=== PATIENT | male | born 1965 | race Caucasian/White ===

== ENCOUNTER 2016-09-20 14:15 | Emergency (ER) | payer BC, OTHER ==
[2016-09-20] MEDS ORDERED: LIDOCAINE 1% 50 ML MDV SUBQ STA (14:30)
[2016-09-20] MEDS ORDERED: LIDOCAINE-MPF 1% 5 ML VIAL ONE (14:33)
== END 2016-09-20 15:25 | disposition home or self-care (01) ==
DX: S61.311A Laceration without foreign body of left index finger with damage to nail, initial encounter (principal); W31.2XXA Contact with powered woodworking and forming machines, initial encounter; Y93.89 Activity, other specified; E78.5 Hyperlipidemia, unspecified; Z79.82 Long term (current) use of aspirin

== ENCOUNTER 2016-12-03 08:00 | Outpatient (CLI) | payer OTHER ==
[2016-12-03 19:28] LABS: ALBUMIN/GLOBULIN RATIO 1.3 (1.0-2.2); BILIRUBIN,TOTAL 0.5 mg/dL (0.2-1.0); CALCIUM 9.3 mg/dL (8.5-10.3); POTASSIUM 3.9 mmol/L (3.5-5.0); TOTAL PROTEIN 7.2 g/dL (6.7-8.2)
[2016-12-03 20:30] LABS: BASOPHILS % (AUTO) 0.5 %; EOSINOPHILS # (AUTO) 0.2 10^3/uL (0.0-0.7); EOSINOPHILS % (AUTO) 2.6 %; HCT - HEMATOCRIT 40.8 % (42.0-52.0); HGB - HEMOGLOBIN 13.4 g/dL (14.0-18.0); LYMPHOCYTES # (AUTO) 2.6 10^3/uL (1.5-3.5); LYMPHOCYTES % (AUTO) 37.1 %; MEAN CORPUSCULAR HEMOGLOBIN 29.6 pg (27.0-31.0); MEAN CORPUSCULAR HGB CONC 32.7 g/dL (32.0-36.0); MEAN CORPUSCULAR VOLUME 90.3 fL (80.0-94.0); MONOCYTES # (AUTO) 0.4 10^3/uL (0.0-1.0); MONOCYTES % (AUTO) 5.8 %; NEUTROPHILS # (AUTO) 3.8 10^3/uL (1.5-6.6); NUCLEATED RED BLOOD CELLS AUTO 0.1 /100WBC; RED BLOOD COUNT 4.52 10^6/uL (4.70-6.10)
== END 2016-12-03 08:01 | disposition home or self-care (01) ==
LOC: LAB.WCP 08:00
PROVIDERS: ATTEND Family Medicine
DX: R23.3 Spontaneous ecchymoses (principal); Z12.5 Encounter for screening for malignant neoplasm of prostate
CPT/HCPCS: 36415; 80053; 84153; 85025

== ENCOUNTER 2016-12-10 11:15 | Outpatient (CLI) | payer OTHER | END 2016-12-10 11:16 | disposition home or self-care (01) | DX: N39.0 Urinary tract infection, site not specified (principal) ==

== ENCOUNTER 2017-01-14 15:52 | Outpatient (CLI) | payer OTHER ==
--- NOTE | 2017-01-15 10:58 | MRI Report ---
EXAM: RIGHT HUMERUS MRI WITHOUT CONTRST EXAM DATE: 01/14/2017 05:04 p.m. CLINICAL HISTORY: Biceps tendon rupture right. Racquetball injury October 2016. COMPARISON: None. TECHNIQUE: Multiplanar, multisequence T1-weighted and fluid-sensitive sequences of the humerus/upper arm without contrast. Other: None. FINDINGS: Bones: No fracture. No destructive bone lesion. Joint Spaces: Linear high signal consistent with tear at the base of the right posterior and posterio r-inferior labrum. Cartilage thinning and subchondral cyst formation at the lower posterior aspect of the glenoid. Small humeral head marginal osteophyte formation. No significant elbow joint effusion. Musculotendinous structures: The proximal long head and short head biceps tendons and musculotendinou s junctions appear intact. There is edema at the distal biceps musculotendinous junction. There is th ickening, abnormal signal and morphology involving the biceps tendon. Full-thickness or near full-thi ckness tear of the distal biceps tendon at and adjacent to the radial insertion with approximately 5. 4 cm retraction involving the majority of tendon fibers. Possibility of a very small number of distal fibers remaining attached at the distal radius. The common extensor and common flexor pronator origi ns appear intact. Triceps and brachialis insertions intact. Other: Unremarkable. IMPRESSION: 1. High-grade full-thickness or near full-thickness tear of the distal biceps tendon at and adjacent to the radial insertion with the majority of the tendon demonstrating 5.4 cm retraction. [facility] MUSCULOSKELETAL RADIOLOGY SECTION Referring Provider Line: [phone] SITE ID: [id number]
== END 2017-01-14 15:53 | disposition home or self-care (01) ==
LOC: DI 15:52
PROVIDERS: ATTEND Family Medicine
DX: S46.211A Strain of muscle, fascia and tendon of other parts of biceps, right arm, initial encounter (principal)

== ENCOUNTER 2017-05-12 14:33 | Outpatient (CLI) | payer OTHER ==
[2017-05-12 12:52] LABS: ALBUMIN/GLOBULIN RATIO 1.4 (1.0-2.2); BILIRUBIN,TOTAL 0.7 mg/dL (0.2-1.0); BUN - BLOOD UREA NITROGEN 15 mg/dL (6-20); CALCIUM 9.2 mg/dL (8.5-10.3); CARBON DIOXIDE - CO2 24 mmol/L (21-32); CHLORIDE 106 mmol/L (101-111); CHOL/HDL RATIO 3.8 (<5.0); CHOLESTEROL 156 mg/dL; GFR - MDRD 78 (>89); GLUCOSE 95 mg/dL (70-100); HDL CHOLESTEROL 41 mg/dL; LDL/HDL RATIO 2.2 (<3.6); SODIUM 136 mmol/L (135-145); TOTAL PROTEIN 7.1 g/dL (6.7-8.2); TRIGLYCERIDES 116 mg/dL; VLDL CHOLESTEROL 23 mg/dL
== END 2017-05-12 14:34 | disposition home or self-care (01) ==
LOC: LAB.WCP 14:33
PROVIDERS: ATTEND Family Medicine
DX: E78.5 Hyperlipidemia, unspecified (principal); Z12.5 Encounter for screening for malignant neoplasm of prostate
CPT/HCPCS: 36415; 80053; 80061; 84153

== ENCOUNTER 2018-07-07 10:50 | Outpatient (CLI) | payer BC, OTHER ==
[2018-07-07 20:02] LABS: BASOPHILS # (AUTO) 0.1 10^3/uL (0.0-0.1); BASOPHILS % (AUTO) 0.7 %; EOSINOPHILS # (AUTO) 0.1 10^3/uL (0.0-0.7); EOSINOPHILS % (AUTO) 1.6 %; HGB - HEMOGLOBIN 14.1 g/dL (14.0-18.0); LYMPHOCYTES % (AUTO) 29.2 %; MEAN CORPUSCULAR HEMOGLOBIN 30.3 pg (27.0-31.0); MEAN CORPUSCULAR HGB CONC 33.4 g/dL (32.0-36.0); MEAN CORPUSCULAR VOLUME 90.7 fL (80.0-94.0); MONOCYTES # (AUTO) 0.4 10^3/uL (0.0-1.0); NEUTROPHILS # (AUTO) 4.2 10^3/uL (1.5-6.6); NEUTROPHILS % (AUTO) 62.5 %; PLT - PLATELET COUNT 185 10^3/uL (130-450); RED BLOOD COUNT 4.63 10^6/uL (4.70-6.10); RED CELL DISTRIBUTION WIDTH 13.1 % (12.0-15.0); WHITE BLOOD COUNT 6.8 x10^3/uL (4.8-10.8)
[2018-07-07 20:36] LABS: ALBUMIN 4.3 g/dL (3.2-5.5); ALBUMIN/GLOBULIN RATIO 1.5 (1.0-2.2); ALKALINE PHOSPHATASE 44 IU/L (42-121); ALT ALANINE AMINOTRANSFERASE 30 IU/L (10-60); AST ASPARTATE AMINOTRANSFERASE 30 IU/L (10-42); BILIRUBIN,TOTAL 0.8 mg/dL (0.2-1.0); BUN - BLOOD UREA NITROGEN 18 mg/dL (6-20); CALCIUM 9.1 mg/dL (8.5-10.3); CARBON DIOXIDE - CO2 26 mmol/L (21-32); CHLORIDE 106 mmol/L (101-111); CHOL/HDL RATIO 3.7 (<5.0); CHOLESTEROL 179 mg/dL; CREATININE 0.8 mg/dL (0.6-1.2); GFR - MDRD 101 (>89); GLUCOSE 90 mg/dL (70-100); HDL CHOLESTEROL 48 mg/dL; LDL CHOLESTEROL,CALCULATED 100 mg/dL; LDL/HDL RATIO 2.1 (<3.6); SODIUM 140 mmol/L (135-145); TOTAL PROTEIN 7.1 g/dL (6.7-8.2); VLDL CHOLESTEROL 31 mg/dL
== END 2018-07-07 23:59 | disposition home or self-care (01) ==
LOC: LAB.WCP 10:50
PROVIDERS: ATTEND Family Medicine
DX: E78.5 Hyperlipidemia, unspecified (principal); Z12.5 Encounter for screening for malignant neoplasm of prostate
CPT/HCPCS: 36415; 80053; 80061; 83721; 84153; 84443; 85025